=== PATIENT | male | born 1955 | race Caucasian/White ===

== ENCOUNTER 2017-06-15 07:31 | Emergency (ER) | payer BC ==
[2017-06-15 07:47] VITALS: BP 135/98
[2017-06-15] MEDS ORDERED: predniSONE TAB* 20 MG PO ONE (08:03)
[2017-06-15] MEDS ORDERED: Albuterol/Ipratropium NEB.SOL* Albuterol 2.5 MG/Ipratropium 0.5 MG 3 ML INH ONE (08:04)
--- NOTE | 2017-06-15 08:09 | ED ---
HPI Cardiac - HPI Summary HPI Summary: 62 yr old male with the complaint of cough for about three weeks, productive of yellow sputum at times, had some blood tinged color a couple of weeks ago. At the onset the patient states he had a raspy voice that began on May 26. The cough has been unrelenting and over the past few days he has become SOB at times, worse with exertion and worse when gets awakened at night trying to sleep. He denies CP, dizziness. He has not had a fever. He states he has had chronic post nasal drip as well. He states he has been told that he has some asthma in the past. - History of Current Complaint Chief Complaint: UCRespiratory Stated Complaint: COUGH Time Seen by Provider: 06/15/17 07:49 - Allergy/Home Medications Allergies/Adverse Reactions: Allergies Allergy/AdvReac Type Severity Reaction Status Date / Time Penicillins Allergy Rash Verified 06/15/17 07:48 sulfites Allergy Difficulty Uncoded 06/15/17 07:49 Breathing Home Medications: Home Medications Esomeprazole Magnesium [Nexium 24Hr] 20 mg PO QAM 06/15/17 [History Confirmed ] Fiber Con 1 dose PO QAM 06/15/17 [History Confirmed 06/15/17] Levothyroxine TAB* [Synthroid TAB*] 50 mcg PO QPM 06/15/17 [History Confirmed ] Rgrbvfwxgaicu-Nkenrqtsgu-Adcep [Nyquil Severe Cold/Flu 5-6.25-10-325 mg/15Ml] 1 liq PO QPM PRN 06/15/17 [History Confirmed 06/15/17] Simvastatin TAB(NF) [Zocor(NF)] 20 mg PO QPM 06/15/17 [History Confirmed ] PMH/Surg Hx/FS Hx/Imm Hx Endocrine/Hematology History: Reports: Hx Thyroid Disease - hypo - Surgical History Surgery Procedure, Year, and Place: left nephrectomy 2000; hernia Infectious Disease History: Yes Infectious Disease History: Reports: Hx Shingles - eye Denies: Traveled Outside the [place] in Last 30 Days - Family History Known Family History: Positive: None - Social History Alcohol Use: Occasionally Substance Use Type: Reports: None Smoking Status (MU): Never Smoked Tobacco Review of Systems Positive: Shortness Of Breath, Cough All Other Systems Reviewed And Are Negative: Yes Physical Exam Triage Information Reviewed: Yes Vital Signs On Initial Exam: Initial Vitals Temp Pulse Resp BP Pulse Ox 98.2 F 79 18 135/98 99 06/15/17 07:39 06/15/17 07:39 06/15/17 07:39 06/15/17 07:39 06/15/17 07:39 Vital Signs Reviewed: Yes Appearance: Positive: Well-Appearing, No Pain Distress Skin: Positive: Warm, Skin Color Reflects Adequate Perfusion Eyes: Positive: EOMI ENT: Positive: Pharynx normal Neck: Positive: Nontender Respiratory/Lung Sounds: Positive: Decreased Breath Sounds, Other - e to a change in right mid lung field. Negative: Stridor Cardiovascular: Positive: RRR. Negative: Murmur Abdomen Description: Positive: Nontender Musculoskeletal: Positive: Strength/ROM Intact Neurological: Positive: Sensory/Motor Intact, Alert, Oriented to Person Place, Time, CN Intact II-III Psychiatric: Positive: Normal - Mary Coma Scale Best Eye Response: 4 - Spontaneous Best Motor Response: 6 - Obeys Commands Best Verbal Response: 5 - Oriented Diagnostics - Vital Signs Vital Signs Temp Pulse Resp BP Pulse Ox 06/15/17 07:39 98.2 F 79 18 135/98 99 - Laboratory Lab Statement: Any lab studies that have been ordered have been reviewed, and results considered in the medical decision making process. Re-Evaluation - Re-Evaluation First Eval Re-Evaluation Time: 09:28 Change: Improved Comment: the patient reports improvement in his cough and feels like the neb opened things up for him. Disposition - Course Course Of Treatment: 62 yr old with coughing, and some sob with hyperinflation on chest xray. Rx with steroids, mdi. He will follow up with PMD - Diagnoses Provider Diagnoses: Asthmatic bronchitis Discharge - Discharge Plan Condition: Good Disposition: HOME Prescriptions: Albuterol HFA INHALER* [Ventolin HFA Inhaler*] 1 - 2 puff INH Q6H PRN #1 mdi PRN Reason: Cough predniSONE TAB* [Deltasone TAB*] 40 mg PO DAILY #8 tab Patient Education Materials: Hypertension (ED), Bronchospasm (ED), Reactive Airways Disease (ED) Referrals: Guillermo Ba MD [Primary Care Provider] - 2 Days
--- NOTE | 2017-06-15 09:18 | RAD ---
Indication: Cough, shortness of breath. 2 views of the chest are reviewed. Comparison is made with previous exam dated February 17, 2004. No mediastinal shift is noted. Heart is of normal size and configuration. Lung mackenzie appear hyperinflated. No evidence of alveolar consolidation is noted. Slight interstitial prominence is noted but this is felt to represent chronic interstitial disease as it appears to be similar to that seen on February 17, 2004. IMPRESSION: Hyperinflated lung mackenzie with no definite evidence of pneumonia.
== END 2017-06-15 09:37 | disposition home or self-care (01) ==
LOC: UCCORT 07:31
DX: J45.909 Unspecified asthma, uncomplicated (principal); E03.9 Hypothyroidism, unspecified; Z88.0 Allergy status to penicillin; Z88.8 Allergy status to other drugs, medicaments and biological substances; Z79.899 Other long term (current) drug therapy; Z91.02 Food additives allergy status
CPT/HCPCS: 71046; 99202; A9270-GY; G0463; J7512